=== PATIENT | male | born 1975 | race Caucasian/White ===

== ENCOUNTER 2019-01-13 09:00 | Emergency (ER) | payer MEDICARE ==
[~2019-01-13] VITALS: Ht 180.3 cm; Wt 97.5 kg
[~2019-01-13 09:00] MED LIST: BENADRYL25 MG PO; CLARITIN10 MG PO; CYCLOBENZAPRINE10 MG PO; MEDROL DOSEPAK4 MG PO; NORCO 5-325 TA1 EACH PO
[2019-01-13] MEDS ORDERED: AUGMENTIN 875875 MG PO (09:20)
[2019-01-13] MEDS ORDERED: NAPROSYN500 MG PO (09:30)
== END 2019-01-13 10:15 | disposition home or self-care (01) ==
LOC: ED 09:00
DX: K04.7 Periapical abscess without sinus (principal); Z79.899 Other long term (current) drug therapy

== ENCOUNTER 2019-12-07 19:42 | Emergency (ER) | payer MEDICARE ==
[~2019-12-07 19:42] MED LIST changes: +AUGMENTIN 875875 MG PO; +NAPROSYN500 MG PO
[2019-12-07] MEDS ORDERED: DOXYCYCLINE100 M3 PO (20:35)
== END 2019-12-07 20:57 | disposition home or self-care (01) ==
LOC: ED 19:42
DX: S20.362A Insect bite (nonvenomous) of left front wall of thorax, initial encounter (principal); Z79.2 Long term (current) use of antibiotics; Z79.899 Other long term (current) drug therapy; W57.XXXA Bitten or stung by nonvenomous insect and other nonvenomous arthropods, initial encounter; Y93.89 Activity, other specified; Y92.89 Other specified places as the place of occurrence of the external cause; Y99.8 Other external cause status

== ENCOUNTER 2022-05-10 10:16 | Emergency (ER) | payer MEDICARE ==
[~2022-05-10] VITALS: Ht 182.8 cm; Wt 102.1 kg
[~2022-05-10 10:16] MED LIST changes: +DOXYCYCLINE100 M3 PO
[2022-05-10] MEDS ORDERED: CLINDAMYCIN HC300 MG PO (11:22)
== END 2022-05-10 11:26 | disposition home or self-care (01) ==
LOC: ED 10:16
DX: K08.89 Other specified disorders of teeth and supporting structures (principal)

== ENCOUNTER 2024-03-13 20:53 | Emergency (ER) | payer MEDICAID ==
[~2024-03-13] VITALS: Ht 185.4 cm; Wt 108.9 kg
[~2024-03-13 20:53] MED LIST changes: +CLINDAMYCIN HC300 MG PO
[2024-03-13] MEDS ORDERED: Doxycycline Hyclate 100 MG CAP PO ONE (21:10)
[2024-03-13] MEDS ORDERED: VIBRAMYCIN100 MG PO (21:12)
== END 2024-03-13 21:18 | disposition home or self-care (01) ==
LOC: ED 20:53
DX: L02.412 Cutaneous abscess of left axilla (principal); Z79.2 Long term (current) use of antibiotics; Z98.890 Other specified postprocedural states